=== PATIENT | female | born 2000 | race Caucasian/White ===

== ENCOUNTER 2022-08-11 14:25 | Inpatient (IN) | payer BC, SELFPAY ==
[2022-08-11 14:43] VITALS: BP 142/79; PULSE 83; RESP 18; TEMP 36.4; O2SAT 97; BMI 20.4
[2022-08-11 15:25] LABS: Appearance Urine Clear; Color Urine Yellow; Glucose Urine UA Negative (Negative); Leukocyte Esterase Urine Trace (Negative); Nitrite Urine Negative (Negative); Specific Gravity - Urine 1.025 (1.005-1.025); UMIC TRIGGER UACC YES; Urine Blood Negative (Negative); Urine Ketones 40 mg/dL (Negative); Urine Protein Negative (Neg-Trace)
[2022-08-11 15:26] LABS: UPreg QC Valid YES; Urine Pregnancy NEGATIVE (NEGATIVE)
[2022-08-11 15:29] LABS: Bacteria Urine 1+ (None Seen); Hyaline Casts Urine 0-2 /LPF (0-2); UACC Culture Trigger YES
[2022-08-11 15:35] LABS: Amphetamine Screen Urine Not Detected (Not Detect); Barbiturates, Urine Not Detected (Not Detect); Benzodiazepines Screen Urine Not Detected (Not Detect); Cannabinoid Screen Urine Not Detected (Not Detect); Cocaine Screen Urine Not Detected (Not Detect); Fentanyl, urine Not Detected (Not Detect); Opiate Screen Urine Not Detected (Not Detect); Phencyclidine Screen Urine Not Detected (Not Detect)
[2022-08-11 15:36] LABS: COVID-19 Test Negative (Negative); IDNOW Serial# 16C4AD1C
[2022-08-11 15:59] LABS: MANUAL DIFF FLAG NO
[2022-08-11 16:11] LABS: Basophils Percent Auto 0.8 % (0-2); Eosinophils Percent Auto 0.2 % (0-4); Hemoglobin 13.4 g/dl (12.0-16.0); Imm Gran Abs Auto 0.01 X10*3/uL (0.00-0.03); Imm Gran Pct Auto 0.2 % (0.0-0.4); Lymphocytes Absolute Auto 1.5 X10*3/uL (1.2-4.9); Lymphocytes Percent Auto 30.5 % (20-40); Mean Corpuscular HGB Conc 33.5 g/dl (31.0-35.0); Mean Corpuscular Hemoglobin 28.4 pg (27.0-33.0); Mean Corpuscular Volume 84.7 fL (80.0-98.0); Mean Platelet Volume 11.3 fL (9.4-12.3); Monocytes Absolute Auto 0.3 X10*3/uL (0.1-1.2); Monocytes Percent Auto 5.6 % (2-11); Neutrophils Percent Auto 62.7 % (45-73); Platelet Count 287 X10*3/uL (160-400); Red Blood Count 4.72 X10*6/uL (4.20-5.50); Red Cell Distribution Width 12.4 % (11.0-16.0); White Blood Count 4.9 X10*3/uL (4.8-10.8)
[2022-08-11 16:32] LABS: Alanine Aminotransferase 6 U/L (0-31); Albumin Level 4.6 g/dL (3.5-5.0); Alkaline Phosphatase 36 U/L (39-117); Anion Gap 14 (12-20); Aspartate Amino Transferase 11 U/L (5-31); Bilirubin Total 1.1 mg/dL (0.0-1.0); Blood Urea Nitrogen 7 mg/dL (9-16); Calcium 9.4 mg/dL (8.4-10.2); Carbon Dioxide 23 mmol/L (22-29); Chloride 104 mmol/L (96-108); Creatinine Clr Calc Pharmacy 115.7; Estimated Glomerular Filt Rate > 60; Glucose Random 95 mg/dL (60-115); Potassium 4.2 mmol/L (3.3-5.1); Sodium 137 mmol/L (135-145); Total Protein 8.2 g/dL (6.5-8.0)
[2022-08-11 16:43] LABS: Ethanol < 10 mg/dL
--- NOTE | 2022-08-11 17:15 | ED_ITS ---
HPI - Psych General Chief Complaint: Psychiatric Symptoms Stated Complaint: SI x 2 weeks, CRISIS eval per EMS Time Seen by Provider: 08/11/22 14:33 Source: patient Mode of arrival: EMS Limitations: no limitations History of Present Illness HPI Narrative: Patient is a 21-year-old female who presents to the emergency department via EMS for crisis evaluation. Patient is at [facility], she states she was ad vised by her counselor at school to come to the emergency department today. Patient has been having worsening depression recently. For the past 2-3 weeks she has been having suicidal ideations, she is vague about intent of pursuing a plan but states that she would either overdose on her medications or do something with her, that I read about online and does not provide further detail. She states over the past 2 months she initially stopped taking her trazodone and Prozac and then did begin taking it again, though it is unclear when she restarted it over the past 2-6 weeks. She does report increased stressors, though she is nonspecific about this and does not wish to provide further detail. She denies any physical complaints when asked. Denies any recreational drug or alcohol usage. Denies any past history of psychiatric hospitalization. Denies any homicidal ideations Related Data Home Medications Medication Instructions Recorded Confirmed fluoxetine 20 mg capsule 1 cap PO DAILY 08/11/22 08/11/22 trazodone 50 mg tablet 0.5 - 1 tab PO BEDTIME 08/11/22 08/11/22 Allergies Allergy/AdvReac Type Severity Reaction Status Date / Time No Known Allergies Allergy Verified 08/11/22 17:08 Review of Systems Review of Systems: Yes all other systems are reviewed and are negative [facility] Past Medical History Attestation statement: The following information was validated with the patient. Source: old records reviewed Social History Social History Alcohol intake: never Smoked in Last 30 Days: No Use of substances other than those prescribed or required for medical reasons: No Advance Directives: No Advance Directives Information Provided: No Physical Exam Vital Signs: Vital Signs: Last Vital Signs Temp 97.6 F 08/11/22 14:43 Pulse 83 08/11/22 14:43 Resp 18 08/11/22 14:43 BP 142/79 H 08/11/22 14:43 Pulse Ox 97 08/11/22 14:43 O2 Del Method 08/11/22 14:43 BMI result Body Mass Index 20.4 Appearance: Alert.?Oriented to person, place and time. No acute distress.?Normal affect. Eyes: Pupils equal, round and reactive to light.? ENT: Pharynx normal.?? Neck: Normal inspection.? Neck supple.?? CVS: Heart sounds normal. Normal heart rate and rhythm.? Pulses normal.?? Respiratory: No respiratory distress.? Lung sounds clear to auscultation bilate rally?? Abdomen: Soft and non-tender. Normoactive bowel sounds. ? Skin: Skin warm and dry.? Normal skin color.?? Extremities: No lower extremity edema.? Neuro: Moves all extremities spontaneously. Sensation intact bilaterally. CN II- XII intact. No focal neuro deficits. Ambulates with normal steady gait. Course Reevaluation(s) Reevaluation #1: CBC and CMP overall unremarkable. Urinalysis with trace pyuria, squamous epithelial cells are also present, she is without any genitourinary symptoms, do not suspect urinary tract infection at this time but rather urogenital contamination. Urine test is negative. Drug abuse screen is negative, alcohol level is blood flow any detectable limit. COVID-19 testing is negative. At this time patient placed in physician observation, the reason for observation being that she requires further time to be evaluated by care team and determination as to whether inpatient psychiatric services are required at this time. She is in no apparent respiratory distress. Time: 17:30 Medical Decision Making Medical Decision Making [facility] Narrative: Patient is a 21-year-old female with reported past medical history of depression presenting to emergency department for evaluation of suicidal ideations with a plan but vague as to whether she has any intention. She is calm and cooperative. Appears to be distracted, and at times responding to external stimuli, when speaking to her she is often noted to be staring off to the side and up towards the ceiling as that she may be experiencing hallucinations, but when asked she denies. She denies any physical complaints. Her physical examination is benign. Will obtain labs for medical clearance, and referred to care team for further evaluation. Differential Diagnosis Differential Diagnoses: The differential diagnosis associated with the presentation includes (Substance use disorder, anxiety, depression, mood disorder, schizophrenia, suicidal ideations) Admission/Observation Consideration of admission/observation: Escalation of care including admission/observation considered (As noted in course) Lab Data [facility] Lab Attestation statement: I reviewed the patient's lab results. 08/11/22 15:50 08/11/22 15:51 Labs: Lab Results 08/11/22 08/11/22 08/11/22 Range/Units 15:13 15:13 15:13 WBC (4.8-10.8) X10*3/uL RBC (4.20-5.50) X10*6/uL Hgb (12.0-16.0) g/dl Hct (37.0-47.0) % MCV (80.0-98.0) fL MCH (27.0-33.0) pg MCHC (31.0-35.0) g/dl RDW (11.0-16.0) % Plt Count (160-400) X10*3/uL MPV (9.4-12.3) fL Immature Gran % (Auto) (0.0-0.4) % Neut % (Auto) (45-73) % Lymph % (Auto) (20-40) % [place] % (Auto) (2-11) % Eos % (Auto) (0-4) % Baso % (Auto) (0-2) % Lymph # (Auto) (1.2-4.9) X10*3/uL [place]iken # (Auto) (0.1-1.2) X10*3/uL Eos # (Auto) (0.0-0.4) X10*3/uL Baso # (Auto) (0.0-0.2) X10*3/uL Abs Immat Gran (auto) (0.00-0.03) X10*3/uL Absolute Neuts (auto) (2.0-8.3) x10*3/uL Absolute Nucleated RBC (0.0-0.012) X10*3/uL Nucleated RBC % (auto) (0.0-0.2) /100WBC Sodium (135-145) mmol/L Potassium (3.3-5.1) mmol/L Chloride (96-108) mmol/L Carbon Dioxide (22-29) mmol/L Anion Gap (12-20) BUN (9-16) mg/dL Creatinine (0.5-1.4) mg/dL Estim Creat Clear Calc Estimated GFR Random Glucose (60-115) mg/dL Calcium (8.4-10.2) mg/dL Total Bilirubin (0.0-1.0) mg/dL AST (5-31) U/L ALT (0-31) U/L Alkaline Phosphatase (39-117) U/L Total Protein (6.5-8.0) g/dL Albumin (3.5-5.0) g/dL Urine Color Yellow Urine Appearance Clear Urine pH 6.0 (5.0-9.0) Ur Specific [place] 1.025 (1.005-1.025) Urine Protein Negative (Neg-Trace) mg/dL Urine Glucose (UA) Negative (Negative) mg/dL Urine Ketones 40 (Negative) mg/dL Urine Blood Negative (Negative) Urine Nitrite Negative (Negative) Ur Leukocyte Esterase Trace H (Negative) Urine RBC 3-5 H (0-2) /HPF Urine WBC 6-10 H (0-5) /HPF Ur Squamous Epith Cells 6-10 (0-2) /HPF Urine Bacteria 1+ (None Seen) Hyaline Casts 0-2 (0-2) /LPF Urine Test NEGATIVE (NEGATIVE) Urine Opiates Screen (Not Detect) Urine Fentanyl Screen (Not Detect) Ur Barbiturates Screen (Not Detect) Ur Phencyclidine Scrn (Not Detect) Ur Amphetamines Screen (Not Detect) U Benzodiazepines Scrn (Not Detect) Urine Cocaine Screen (Not Detect) U Marijuana (THC) Screen (Not Detect) Ethyl Alcohol mg/dL COVID-19 (LUCIA) Negative (Negative) COVID-19 Clin Com See Note 08/11/22 08/11/22 08/11/22 Range/Units 15:13 15:50 15:50 WBC 4.9 (4.8-10.8) X10*3/uL RBC 4.72 (4.20-5.50) X10*6/uL Hgb 13.4 (12.0-16.0) g/dl Hct 40.0 (37.0-47.0) % MCV 84.7 (80.0-98.0) fL MCH 28.4 (27.0-33.0) pg MCHC 33.5 (31.0-35.0) g/dl RDW 12.4 (11.0-16.0) % Plt Count 287 (160-400) X10*3/uL MPV 11.3 (9.4-12.3) fL Immature Gran % (Auto) 0.2 (0.0-0.4) % Neut % (Auto) 62.7 (45-73) % Lymph % (Auto) 30.5 (20-40) % Aiken % (Auto) 5.6 (2-11) % Eos % (Auto) 0.2 (0-4) % Baso % (Auto) 0.8 (0-2) % Lymph # (Auto) 1.5 (1.2-4.9) X10*3/uL Aiken # (Auto) 0.3 (0.1-1.2) X10*3/uL Eos # (Auto) 0.0 (0.0-0.4) X10*3/uL Baso # (Auto) 0.0 (0.0-0.2) X10*3/uL Abs Immat Gran (auto) 0.01 (0.00-0.03) X10*3/uL Absolute Neuts (auto) 3.0 (2.0-8.3) x10*3/uL Absolute Nucleated RBC 0.000 (0.0-0.012) X10*3/uL Nucleated RBC % (auto) 0.0 (0.0-0.2) /100WBC Sodium (135-145) mmol/L Potassium (3.3-5.1) mmol/L Chloride (96-108) mmol/L Carbon Dioxide (22-29) mmol/L Anion Gap (12-20) BUN (9-16) mg/dL Creatinine (0.5-1.4) mg/dL Estim Creat Clear Calc Estimated GFR Random Glucose (60-115) mg/dL Calcium (8.4-10.2) mg/dL Total Bilirubin (0.0-1.0) mg/dL AST (5-31) U/L ALT (0-31) U/L Alkaline Phosphatase (39-117) U/L Total Protein (6.5-8.0) g/dL Albumin (3.5-5.0) g/dL Urine Color Urine Appearance Urine pH (5.0-9.0) Ur Specific [place] (1.005-1.025) Urine Protein (Neg-Trace) mg/dL Urine Glucose (UA) (Negative) mg/dL Urine Ketones (Negative) mg/dL Urine Blood (Negative) Urine Nitrite (Negative) Ur Leukocyte Esterase (Negative) Urine RBC (0-2) /HPF Urine WBC (0-5) /HPF Ur Squamous Epith Cells (0-2) /HPF Urine Bacteria (None Seen) Hyaline Casts (0-2) /LPF Urine Test (NEGATIVE) Urine Opiates Screen Not Detected (Not Detect) Urine Fentanyl Screen Not Detected (Not Detect) Ur Barbiturates Screen Not Detected (Not Detect) Ur Phencyclidine Scrn Not Detected (Not Detect) Ur Amphetamines Screen Not Detected (Not Detect) U Benzodiazepines Scrn Not Detected (Not Detect) Urine Cocaine Screen Not Detected (Not Detect) U Marijuana (THC) Screen Not Detected (Not Detect) Ethyl Alcohol < 10 mg/dL COVID-19 (LUCIA) (Negative) COVID-19 Clin Com 08/11/22 Range/Units 15:51 WBC (4.8-10.8) X10*3/uL RBC (4.20-5.50) X10*6/uL Hgb (12.0-16.0) g/dl Hct (37.0-47.0) % MCV (80.0-98.0) fL MCH (27.0-33.0) pg MCHC (31.0-35.0) g/dl RDW (11.0-16.0) % Plt Count (160-400) X10*3/uL MPV (9.4-12.3) fL Immature Gran % (Auto) (0.0-0.4) % Neut % (Auto) (45-73) % Lymph % (Auto) (20-40) % Aiken % (Auto) (2-11) % Eos % (Auto) (0-4) % Baso % (Auto) (0-2) % Lymph # (Auto) (1.2-4.9) X10*3/uL Aiken # (Auto) (0.1-1.2) X10*3/uL Eos # (Auto) (0.0-0.4) X10*3/uL Baso # (Auto) (0.0-0.2) X10*3/uL Abs Immat Gran (auto) (0.00-0.03) X10*3/uL Absolute Neuts (auto) (2.0-8.3) x10*3/uL Absolute Nucleated RBC (0.0-0.012) X10*3/uL Nucleated RBC % (auto) (0.0-0.2) /100WBC Sodium 137 (135-145) mmol/L Potassium 4.2 (3.3-5.1) mmol/L Chloride 104 (96-108) mmol/L Carbon Dioxide 23 (22-29) mmol/L Anion Gap 14 (12-20) BUN 7 L (9-16) mg/dL Creatinine 0.65 (0.5-1.4) mg/dL Estim Creat Clear Calc 115.7 Estimated GFR > 60 Random Glucose 95 (60-115) mg/dL Calcium 9.4 (8.4-10.2) mg/dL Total Bilirubin 1.1 H (0.0-1.0) mg/dL AST 11 (5-31) U/L ALT 6 (0-31) U/L Alkaline Phosphatase 36 L (39-117) U/L Total Protein 8.2 H (6.5-8.0) g/dL Albumin 4.6 (3.5-5.0) g/dL Urine Color Urine Appearance Urine pH (5.0-9.0) Ur Specific [place] (1.005-1.025) Urine Protein (Neg-Trace) mg/dL Urine Glucose (UA) (Negative) mg/dL Urine Ketones (Negative) mg/dL Urine Blood (Negative) Urine Nitrite (Negative) Ur Leukocyte Esterase (Negative) Urine RBC (0-2) /HPF Urine WBC (0-5) /HPF Ur Squamous Epith Cells (0-2) /HPF Urine Bacteria (None Seen) Hyaline Casts (0-2) /LPF Urine Test (NEGATIVE) Urine Opiates Screen (Not Detect) Urine Fentanyl Screen (Not Detect) Ur Barbiturates Screen (Not Detect) Ur Phencyclidine Scrn (Not Detect) Ur Amphetamines Screen (Not Detect) U Benzodiazepines Scrn (Not Detect) Urine Cocaine Screen (Not Detect) U Marijuana (THC) Screen (Not Detect) Ethyl Alcohol mg/dL COVID-19 (LUCIA) (Negative) COVID-19 Clin Com Discharge Plan Discharge Clinical Impression: Suicidal ideation, Depression Patient Disposition: Still a Patient Prescriptions: No Action fluoxetine 20 mg capsule 1 cap PO DAILY trazodone 50 mg tablet 0.5 - 1 tab PO BEDTIME Interventions: [place]-Suicide Risk Severity Scale Last Done: 08/11/22 15:35
--- NOTE | 2022-08-11 18:35 | PHA.MEDREC ---
Pharmacy Consult ? Medication Reconciliation RN has completed the medication reconciliation, pharmacy reviewed.
[2022-08-11] MEDS: Acetaminophen 325 MG TABLET 650 MG PO (20:15)
[2022-08-11 23:55] VITALS: BP 100/63; PULSE 64; RESP 16; TEMP 36.6; O2SAT 98
[2022-08-12] MEDS: traZODone HCL 50 MG TABLET PO (00:17)
--- NOTE | 2022-08-12 00:45 | PC.ADMIT ---
Ruiz, prefers Xin, was admitted to [facility] at 24:44 from the Pod on a CV for treatment of SI & MDD. Admission process was completed using the crisis assessment d/t patient requesting to go to bed. 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 Precipitant of admission include increasing depression and suicidal thoughts with a vague plan. Per crisis pt has had increasing SI for 2-3 weeks with plan to ?starve herself?, and/or ?renting a car and dying inside her car?.? Crisis assessment also reported that the patient has had intrusive images of ?dying and killing her pets?. Reported that these images were uncontrollable. Recent breakup in May as well. Xin is Alert and Oriented x4. Mood is depressed with congruent flat affect. Patient denies HI/ AH/ VH. Xin states that she has been struggling with school and her grades are reflecting. 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 Thought Process linear and organized. No overt psychosis noted. Patient denied active SI upon admission. Reported that she would seek staff if she started to have these feelings or thoughts. Crisis assessment reported a poor appetite. Pt reported that she is only eating one meal a day, and that she is only consuming about half of the meal. Recent poor sleep, ?it takes hours to fall asleep?. PALOMO and negative. Pt denied being a smoker. Denies all physical complaints at this time. No acute distress noted or reported. 15 Minute safety checks initiated.?
[2022-08-12 08:00] VITALS: BP 107/73; PULSE 70; RESP 18; TEMP 36.6; O2SAT 99
[2022-08-12] MEDS: FLUoxetine HCl 20 MG CAPSULE PO (08:40)
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
[2022-08-12] MEDS: traZODone HCL 25 MG HALFTAB 75 MG PO (20:41)
[2022-08-12 20:45] VITALS: BP 90/53; PULSE 86; RESP 18; TEMP 36.4; O2SAT 98
[2022-08-13 08:00] VITALS: BP 100/61; PULSE 67; RESP 18; TEMP 36.7; O2SAT 98
[2022-08-13] MEDS: FLUoxetine HCl 20 MG CAPSULE PO (08:56)
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
[2022-08-13] MEDS: buPROPion HCl XL 150 MG TAB.ER.24H PO (13:14)
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
[2022-08-13 21:20] VITALS: BP 96/55; PULSE 87; RESP 18; TEMP 36.7; O2SAT 97
[2022-08-13] MEDS: traZODone HCL 25 MG HALFTAB 75 MG PO (21:28)
[2022-08-14 09:00] VITALS: BP 96/53; PULSE 70; RESP 14; TEMP 36.6; O2SAT 98
[2022-08-14] MEDS: FLUoxetine HCl 20 MG CAPSULE PO (09:42)
[2022-08-14] MEDS: buPROPion HCl XL 150 MG TAB.ER.24H PO (09:42)
--- NOTE | 2022-08-14 12:54 | HO.PSYCHPN ---
Subjective Subjective Date of Service: 08/14/22 Reason For Visit: Depression/SI Subjective Notes: Conditional Voluntary Healthcare Proxy: No Guardianship: No Interim History: Pt quite depressed monotone has been quite depressed food restricting denies active si but quite withdrawn Medication Compliance: Yes Mental Status Exam Mental Status Exam Narrative: pt monotone withdrawn dec appetite monotone hopeless helpless passive si limited engagement pov content does better with time and encouragement no hallucinate Upset over feeling unsupported by school Diagnostics Vital Signs (24Hr): Vital Signs - 24 hr 08/13/22 21:20 08/14/22 09:00 Temperature 98.1 F 97.9 F Pulse Rate 87 70 Respiratory Rate 18 14 Blood Pressure 96/55 L 96/53 L Pulse Oximetry 97 98 Oxygen Delivery Method Room Air Room Air BMI result Body Mass Index 20.0 Labs 08/11/22 15:50 08/11/22 15:51 Medications Medications Current Medications Acetaminophen (Acetaminophen 325 Mg Tablet) 650 mg PO Q6H PRN PRN Reason: Headache/Pain Mild Scale (1-3) Al Hydroxide/Mg Hydroxide (Magnesium Hydrox/Alum Hydrox 30 Ml Oral.Susp) 30 ml PO Q6H PRN PRN Reason: Heartburn/Nausea Bupropion HCl (Bupropion Hcl Xl 150 Mg Tab.Er.24h) 150 mg PO DAILY [facility] Last Admin: 08/14/22 09:42 Dose: 150 mg Fluoxetine HCl (Fluoxetine Hcl 20 Mg Capsule) 20 mg PO DAILY [facility] Last Admin: 08/14/22 09:42 Dose: 20 mg Hydroxyzine HCl (Hydroxyzine Hcl 25 Mg Tablet) 25 mg PO Q6H PRN PRN Reason: Anxiety Magnesium Hydroxide (Milk Of Magnesia 30 Ml Oral.Susp) 30 ml PO DAILY PRN PRN Reason: Constipation Trazodone HCl (Trazodone Hcl 25 Mg Halftab) 75 mg PO BEDTIME [facility] Last Admin: 08/13/22 21:28 Dose: 75 mg Trazodone HCl (Trazodone Hcl 25 Mg Halftab) 25 mg PO BEDTIME PRN PRN Reason: Insomnia Allergies Allergies Allergy/AdvReac Type Severity Reaction Status Date / Time No Known Allergies Allergy Verified 08/11/22 17:08 Assessment & Plan Assessment & Plan (1) Major depressive disorder, recurrent severe without psychotic features: Status: Acute Code(s): F33.2 - Major depressive disorder, recurrent severe without psychotic features Plan 08/12: continue prozac 20 mg daily. increase trazodone to 75 mg QHS. T/C incr in prozac dosing, starting wellbutrin, or other. 08/13: collateral obtained from [facility] counseling re meds Hx. start wellbutrin 150 today, otherwise continue previous regimen. 08/14/2022 Continue plan of care monitor food intake encourage safety plan and future orientation Reason for contiued inpatient stay Substantial Risk for: harm to self Time Spent With Patient Time: Total time managing care of this patient today ____ minutes.
[2022-08-14] MEDS: traZODone HCL 25 MG HALFTAB 75 MG PO (23:01)
[2022-08-15 08:27] VITALS: BP 96/59; PULSE 86; RESP 18; TEMP 36.6; O2SAT 96
[2022-08-15] MEDS: buPROPion HCl XL 150 MG TAB.ER.24H PO (09:57)
[2022-08-15] MEDS: FLUoxetine HCl 20 MG CAPSULE PO (09:57)
--- NOTE | 2022-08-15 16:41 | PC.NURSE ---
Today Horacio ate no breakfast. I made her tea and gave her a bottled water. She took sips of her tea and drank 4 oz water, declined the crackers I offered. After speaking with Dr Haile she ate 75% of a cheeseburger and a few bites of soup at lunch.
[2022-08-15 20:15] VITALS: BP 95/55; PULSE 73; RESP 16; TEMP 36.6; O2SAT 96
[2022-08-15] MEDS: Cyproheptadine HCl 4 MG TABLET 2 MG PO (20:28)
[2022-08-15] MEDS: traZODone HCL 50 MG TABLET PO (20:28)
--- NOTE | 2022-08-15 23:57 | HO.PSYCHPN ---
Subjective Subjective Date of Service: 08/15/22 Reason For Visit: Depression/SI Subjective Notes: Conditional Voluntary Healthcare Proxy: No Guardianship: No Interim History: Patient had not been eating on a regular basis try to clarify issues related to anorexia versus depression. Also unclear parents view of patient's current situation difficulty at school patient thinking about taking a medical leave. After discussion regarding her food intake patient did eat the breakfast and lunch Medication Compliance: Yes Mental Status Exam Mental Status Exam Narrative: pt monotone withdrawn dec appetite monotone hopeless helpless passive si limited engagement pov content does better with time and encouragement no hallucinations Upset over feeling unsupported by school patient often vague regarding feeling states and behavior was able to take in information regarding safety and eating Diagnostics Vital Signs (24Hr): Vital Signs - 24 hr 08/15/22 08:27 08/15/22 20:15 Temperature 97.9 F 97.8 F Pulse Rate 86 73 Respiratory Rate 18 16 Blood Pressure 96/59 L 95/55 L Pulse Oximetry 96 96 Oxygen Delivery Method Room Air BMI result Body Mass Index 20.0 Labs 08/11/22 15:50 08/11/22 15:51 Medications Medications Current Medications Acetaminophen (Acetaminophen 325 Mg Tablet) 650 mg PO Q6H PRN PRN Reason: Headache/Pain Mild Scale (1-3) Al Hydroxide/Mg Hydroxide (Magnesium Hydrox/Alum Hydrox 30 Ml Oral.Susp) 30 ml PO Q6H PRN PRN Reason: Heartburn/Nausea Bupropion HCl (Bupropion Hcl Xl 150 Mg Tab.Er.24h) 150 mg PO DAILY [facility] Last Admin: 08/15/22 09:57 Dose: 150 mg Cyproheptadine HCl (Cyproheptadine Hcl 4 Mg Tablet) 2 mg PO BEDTIME [facility] Last Admin: 08/15/22 20:28 Dose: 2 mg Fluoxetine HCl (Fluoxetine Hcl 20 Mg Capsule) 20 mg PO DAILY [facility] Last Admin: 08/15/22 09:57 Dose: 20 mg Hydroxyzine HCl (Hydroxyzine Hcl 25 Mg Tablet) 25 mg PO Q6H PRN PRN Reason: Anxiety Magnesium Hydroxide (Milk Of Magnesia 30 Ml Oral.Susp) 30 ml PO DAILY PRN PRN Reason: Constipation Trazodone HCl (Trazodone Hcl 50 Mg Tablet) 50 mg PO BEDTIME [facility] Last Admin: 08/15/22 20:28 Dose: 50 mg Trazodone HCl (Trazodone Hcl 25 Mg Halftab) 25 mg PO BEDTIME PRN PRN Reason: Insomnia Allergies Allergies Allergy/AdvReac Type Severity Reaction Status Date / Time No Known Allergies Allergy Verified 08/11/22 17:08 Assessment & Plan Assessment & Plan (1) Major depressive disorder, recurrent severe without psychotic features: Status: Acute Code(s): F33.2 - Major depressive disorder, recurrent severe without psychotic features Plan 08/12: continue prozac 20 mg daily. increase trazodone to 75 mg QHS. T/C incr in prozac dosing, starting wellbutrin, or other. 08/13: collateral obtained from [facility] counseling re meds Hx. start wellbutrin 150 today, otherwise continue previous regimen. 08/14/2022 Continue plan of care monitor food intake encourage safety plan and future orientation 08/15/22 Continue plan of care encourage parental support planning with [facility] Continue Wellbutrin consider PHP Reason for contiued inpatient stay Substantial Risk for: harm to self Time Spent With Patient Time: Total time managing care of this patient today ____ minutes.
[2022-08-16 08:00] VITALS: BP 88/53; PULSE 80; TEMP 36.4; O2SAT 98
[2022-08-16] MEDS: FLUoxetine HCl 20 MG CAPSULE PO (08:43)
[2022-08-16] MEDS: buPROPion HCl XL 150 MG TAB.ER.24H PO ×2 (08:43→13:41)
[2022-08-16 09:10] LABS: TSH reflex Free T4 1.77 uIU/mL (0.32-4.0)
--- NOTE | 2022-08-16 13:43 | P.PNPSI_ITS ---
Subjective Subjective Date of Service: 08/16/22 Reason For Visit: Depression/SI Interim History: stable presentation, rather flat and monotone. states she is all right and her mood is not bad. denies SI. discuss her plans, which are presently to take a medical leave from school and return to her family in [place]. agreeable to increase wellbutrin to 300 and to increase periactin to 4 mg QHS. per staff, guarded. using phone to communicate with family in [place]. anxiety improved. sleeping well.. eating 50%. safe. up x1 overnight. Mental Status Exam Mental Status Exam Narrative: calm, cooperative. gown. adequate hygiene. cooperative. no PMA/PMR. speech soft, decr amount, decr rate, flattened prosody. thoughts linear and logical. affect constricted. mood not bad. denies SI. no SIBI/HI/AVH expressed. Diagnostics Vital Signs (24Hr): Vital Signs - 24 hr 08/15/22 20:15 08/16/22 08:00 Temperature 97.8 F 97.6 F Pulse Rate 73 80 Respiratory Rate 16 Blood Pressure 95/55 L 88/53 L Pulse Oximetry 96 98 Oxygen Delivery Method Room Air BMI result Body Mass Index 20.0 Labs 08/11/22 15:50 08/11/22 15:51 Labs: Laboratory Results - last 48 hr 08/16/22 08:25 TSH 1.77 Medications Medications Current Medications Acetaminophen (Acetaminophen 325 Mg Tablet) 650 mg PO Q6H PRN PRN Reason: Headache/Pain Mild Scale (1-3) Al Hydroxide/Mg Hydroxide (Magnesium Hydrox/Alum Hydrox 30 Ml Oral.Susp) 30 ml PO Q6H PRN PRN Reason: Heartburn/Nausea Bupropion HCl (Bupropion Hcl Xl 150 Mg Tab.Er.24h) 150 mg PO ONCE ONE Stop: 08/16/22 11:55 Last Admin: 08/16/22 13:41 Dose: 150 mg Bupropion HCl (Bupropion Hcl Xl 300 Mg Tab.Er.24h) 300 mg PO DAILY [facility] Cyproheptadine HCl (Cyproheptadine Hcl 4 Mg Tablet) 4 mg PO BEDTIME [facility] Fluoxetine HCl (Fluoxetine Hcl 20 Mg Capsule) 20 mg PO DAILY [facility] Last Admin: 08/16/22 08:43 Dose: 20 mg Hydroxyzine HCl (Hydroxyzine Hcl 25 Mg Tablet) 25 mg PO Q6H PRN PRN Reason: Anxiety Magnesium Hydroxide (Milk Of Magnesia 30 Ml Oral.Susp) 30 ml PO DAILY PRN PRN Reason: Constipation Trazodone HCl (Trazodone Hcl 50 Mg Tablet) 50 mg PO BEDTIME [facility] Last Admin: 08/15/22 20:28 Dose: 50 mg Trazodone HCl (Trazodone Hcl 25 Mg Halftab) 25 mg PO BEDTIME PRN PRN Reason: Insomnia Allergies Allergies Allergy/AdvReac Type Severity Reaction Status Date / Time No Known Allergies Allergy Verified 08/11/22 17:08 Assessment & Plan Assessment & Plan (1) Major depressive disorder, recurrent severe without psychotic features: Status: Acute Code(s): F33.2 - Major depressive disorder, recurrent severe without psychotic features Plan 3: continue prozac 20 mg daily. increase trazodone to 75 mg QHS. T/C incr in prozac dosing, starting wellbutrin, or other. 08/13: collateral obtained from [facility] counseling re meds Hx. start wellbutrin 150 today, otherwise continue previous regimen. 08/14/2022 Continue plan of care monitor food intake encourage safety plan and future orientation 08/15/22 Continue plan of care encourage parental support planning with [facility] Continue Wellbutrin consider PHP 08/16: increase wellbutrin to 300. increase periactin to 4. planning for DC later this week. pt plans to take medical leave from school and return to stay with family in [place]. Patient educated on: medication risk/benefits Reason for contiued inpatient stay Substantial Risk for: inability to function and rapid decompensation Time Spent With Patient Time: Total time managing care of this patient today __25__ minutes.
[2022-08-16 20:00] VITALS: BP 102/59; PULSE 103; RESP 16; TEMP 36.9; O2SAT 97
[2022-08-16] MEDS: Cyproheptadine HCl 4 MG TABLET PO (23:15)
[2022-08-16] MEDS: traZODone HCL 50 MG TABLET PO (23:15)
[2022-08-17 06:00] VITALS: BP 99/60; PULSE 78; TEMP 36.5; O2SAT 98
[2022-08-17] MEDS: buPROPion HCl XL 300 MG TAB.ER.24H PO (08:52)
[2022-08-17] MEDS: FLUoxetine HCl 20 MG CAPSULE PO (08:52)
--- NOTE | 2022-08-17 14:18 | HO.PSYCHPN ---
Subjective Subjective Date of Service: 08/17/22 Reason For Visit: Depression/SI Interim History: calm, cooperative. not seen in the milieu today. seems slower today. reports SI has returned. she noticed that 3 days ago she started to not want to shower. then yesterday she started to not want to talk to her family in [place]. then today she began to have SI. 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 she became quite anxious afterward thinking of all the things she needs to get done in order to wrap up here and get back to [place]. discuss her asking her mother for help with some of those things. she cannot directly link the increase in anxiety with return of SI, and as reviewed above, it appears changes began several days ago. states she slept well last night, however. per staff, guarded, not answering questions. med and meals complaint, at least eating some of most meals. attended art group. pleasant, appropriate. slept from 2300 on. Mental Status Exam Mental Status Exam Narrative: calm, cooperative. gown. adequate hygiene. cooperative. no PMA/PMR. speech soft, decr amount, decr rate, flattened prosody. thoughts linear and logical. affect constricted. mood anxious. endorses SI. no SIBI/HI/AVH expressed. Diagnostics Vital Signs (24Hr): Vital Signs - 24 hr 08/16/22 20:00 08/17/22 06:00 Temperature 98.5 F 97.7 F Pulse Rate 103 H 78 Respiratory Rate 16 Blood Pressure 102/59 L 99/60 Pulse Oximetry 97 98 Oxygen Delivery Method Room Air Room Air BMI result Body Mass Index 20.0 Labs 08/11/22 15:50 08/11/22 15:51 Labs: Laboratory Results - last 48 hr 08/16/22 08:25 TSH 1.77 Medications Medications Current Medications Acetaminophen (Acetaminophen 325 Mg Tablet) 650 mg PO Q6H PRN PRN Reason: Headache/Pain Mild Scale (1-3) Al Hydroxide/Mg Hydroxide (Magnesium Hydrox/Alum Hydrox 30 Ml Oral.Susp) 30 ml PO Q6H PRN PRN Reason: Heartburn/Nausea Bupropion HCl (Bupropion Hcl Xl 300 Mg Tab.Er.24h) 300 mg PO DAILY [facility] Last Admin: 08/17/22 08:52 Dose: 300 mg Cyproheptadine HCl (Cyproheptadine Hcl 4 Mg Tablet) 4 mg PO BEDTIME [facility] Last Admin: 08/16/22 23:15 Dose: 4 mg Fluoxetine HCl (Fluoxetine Hcl 20 Mg Capsule) 20 mg PO DAILY [facility] Last Admin: 08/17/22 08:52 Dose: 20 mg Hydroxyzine HCl (Hydroxyzine Hcl 25 Mg Tablet) 25 mg PO Q6H PRN PRN Reason: Anxiety Magnesium Hydroxide (Milk Of Magnesia 30 Ml Oral.Susp) 30 ml PO DAILY PRN PRN Reason: Constipation Trazodone HCl (Trazodone Hcl 50 Mg Tablet) 50 mg PO BEDTIME [facility] Last Admin: 08/16/22 23:15 Dose: 50 mg Trazodone HCl (Trazodone Hcl 25 Mg Halftab) 25 mg PO BEDTIME PRN PRN Reason: Insomnia Allergies Allergies Allergy/AdvReac Type Severity Reaction Status Date / Time No Known Allergies Allergy Verified 08/11/22 17:08 Assessment & Plan Assessment & Plan (1) Major depressive disorder, recurrent severe without psychotic features: Status: Acute Code(s): F33.2 - Major depressive disorder, recurrent severe without psychotic features Plan 3/2: continue prozac 20 mg daily. increase trazodone to 75 mg QHS. T/C incr in prozac dosing, starting wellbutrin, or other. 08/13: collateral obtained from [facility] counseling re meds Hx. start wellbutrin 150 today, otherwise continue previous regimen. 08/14/2022 Continue plan of care monitor food intake encourage safety plan and future orientation 08/15/22 Continue plan of care encourage parental support planning with [facility] Continue Wellbutrin consider PHP 08/16: increase wellbutrin to 300. increase periactin to 4. planning for DC later this week. pt plans to take medical leave from school and return to stay with family in [place]. 08/17: second day of wellbutrin 300. reporting SI today and had panic attack in the afternoon. states she slept well, however. T/C decrease of wellbutrin back to 150 and increase in prozac, currently at 20 mg daily. Patient educated on: medication risk/benefits Reason for contiued inpatient stay Substantial Risk for: harm to self, inability to function and rapid decompensation Time Spent With Patient Time: Total time managing care of this patient today __35__ minutes.
[2022-08-17] MEDS: hydrOXYzine HCL 25 MG TABLET PO ×2 (14:20→23:18)
[2022-08-17 20:00] VITALS: BP 117/69; PULSE 109; RESP 16; TEMP 36.8; O2SAT 97
[2022-08-17] MEDS: traZODone HCL 50 MG TABLET PO (23:18)
[2022-08-17] MEDS: Cyproheptadine HCl 4 MG TABLET PO (23:18)
[2022-08-18 06:00] VITALS: BP 96/60; PULSE 76; RESP 16; TEMP 36.6; O2SAT 97
[2022-08-18] MEDS: FLUoxetine HCl 20 MG CAPSULE PO (09:41)
[2022-08-18] MEDS: buPROPion HCl XL 300 MG TAB.ER.24H PO (09:41)
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
[2022-08-18] MEDS: LORazepam 1 MG TABLET PO (16:51)
[2022-08-18 20:50] VITALS: BP 114/86; PULSE 98; TEMP 37.1; O2SAT 98
[2022-08-18] MEDS: hydrOXYzine HCL 25 MG TABLET PO (21:06)
[2022-08-18] MEDS: traZODone HCL 50 MG TABLET PO (21:56)
[2022-08-18] MEDS: Cyproheptadine HCl 4 MG TABLET PO (21:56)
[2022-08-19 08:35] VITALS: BP 93/60; PULSE 72; RESP 14; TEMP 36.7; O2SAT 98
[2022-08-19] MEDS: buPROPion HCl XL 150 MG TAB.ER.24H PO (08:46)
[2022-08-19] MEDS: FLUoxetine HCl 20 MG CAPSULE 40 MG PO (08:46)
--- NOTE | 2022-08-19 13:12 | HO.PSYCHPN ---
Subjective Subjective Date of Service: 08/19/22 Reason For Visit: Depression/SI Interim History: hu, cooperative. reports anxiety better than yesterday, mood a bit improved. spoke with mother. had panic attacks and nightmares last night. after taking ativan felt like she was swinging, agrees to try dose of 0.5 mg next time. agreeable to discharge tuesday. asking questions about Dx and relational style. discuss plans to return to [place]. per staff, sleeping better. anx/dep 7. spent a lot of time on the phone yesterday. no groups. passive SI at times. terse. crying 2/2 flashbacks. slept well. got ativan at about 5 pm. Mental Status Exam Mental Status Exam Narrative: calm, cooperative. gown. adequate hygiene. cooperative. no PMA/PMR. speech soft, decr amount, decr rate, flattened prosody. thoughts linear and logical. affect constricted. mood improved, less anxious. no SI/SIBI/HI/AVH expressed. Diagnostics Vital Signs (24Hr): Vital Signs - 24 hr 08/18/22 20:50 08/19/22 08:35 Temperature 98.7 F 98.0 F Pulse Rate 98 72 Respiratory Rate 14 Blood Pressure 114/86 93/60 Pulse Oximetry 98 98 Oxygen Delivery Method Room Air Room Air BMI result Body Mass Index 20.0 Labs 08/11/22 15:50 08/11/22 15:51 Medications Medications Current Medications Acetaminophen (Acetaminophen 325 Mg Tablet) 650 mg PO Q6H PRN PRN Reason: Headache/Pain Mild Scale (1-3) Al Hydroxide/Mg Hydroxide (Magnesium Hydrox/Alum Hydrox 30 Ml Oral.Susp) 30 ml PO Q6H PRN PRN Reason: Heartburn/Nausea Bupropion HCl (Bupropion Hcl Xl 150 Mg Tab.Er.24h) 150 mg PO DAILY COUNTS INCLUDE 234 BEDS AT [facility] Last Admin: 08/19/22 08:46 Dose: 150 mg Cyproheptadine HCl (Cyproheptadine Hcl 4 Mg Tablet) 4 mg PO BEDTIME [facility] Last Admin: 08/18/22 21:56 Dose: 4 mg Fluoxetine HCl (Fluoxetine Hcl 20 Mg Capsule) 40 mg PO DAILY COUNTS INCLUDE 234 BEDS AT [facility] Last Admin: 08/19/22 08:46 Dose: 40 mg Hydroxyzine HCl (Hydroxyzine Hcl 25 Mg Tablet) 25 mg PO Q6H PRN PRN Reason: Anxiety Last Admin: 08/18/22 21:06 Dose: 25 mg Lorazepam (Lorazepam 0.5 Mg Tablet) 0.5 mg PO DAILY PRN PRN Reason: panic Magnesium Hydroxide (Milk Of Magnesia 30 Ml Oral.Susp) 30 ml PO DAILY PRN PRN Reason: Constipation Trazodone HCl (Trazodone Hcl 50 Mg Tablet) 50 mg PO BEDTIME [facility] Last Admin: 08/18/22 21:56 Dose: 50 mg Trazodone HCl (Trazodone Hcl 25 Mg Halftab) 25 mg PO BEDTIME PRN PRN Reason: Insomnia Allergies Allergies Allergy/AdvReac Type Severity Reaction Status Date / Time No Known Allergies Allergy Verified 08/11/22 17:08 Assessment & Plan Assessment & Plan (1) Major depressive disorder, recurrent severe without psychotic features: Status: Acute Code(s): F33.2 - Major depressive disorder, recurrent severe without psychotic features Plan 3/: continue prozac 20 mg daily. increase trazodone to 75 mg QHS. T/C incr in prozac dosing, starting wellbutrin, or other. 08/13: collateral obtained from [facility] counseling re meds Hx. start wellbutrin 150 today, otherwise continue previous regimen. 08/14/2022 Continue plan of care monitor food intake encourage safety plan and future orientation 08/15/22 Continue plan of care encourage parental support planning with [facility] Continue Wellbutrin consider PHP 08/16: increase wellbutrin to 300. increase periactin to 4. planning for DC later this week. pt plans to take medical leave from school and return to stay with family in [place]. 08/17: second day of wellbutrin 300. reporting SI today and had panic attack in the afternoon. states she slept well, however. T/C decrease of wellbutrin back to 150 and increase in prozac, currently at 20 mg daily. 08/18: renewed SI continues in setting of severe anxiety re plan to return to [place]. 2 panic attacks yesterday. start ativan 1 mg daily PRN panic attack. decrease wellbutrin back to 150 in the event it is exacerbating things. increase prozac to 40 for anxiety/depression mgmt. 08/19: improved from yesterday, was in touch with family. more insight into relationship btwn recent anxiety/SI and her trauma Hx. somewhat improved anxiety today. continue current mgmt. Reason for contiued inpatient stay Substantial Risk for: harm to self, inability to function and rapid decompensation Time Spent With Patient Time: Total time managing care of this patient today __25__ minutes.
[2022-08-19 23:00] VITALS: BP 98/66; PULSE 74; RESP 18; TEMP 36.8; O2SAT 95
[2022-08-19] MEDS: traZODone HCL 50 MG TABLET PO (23:08)
[2022-08-19] MEDS: Cyproheptadine HCl 4 MG TABLET PO (23:08)
[2022-08-20 08:18] VITALS: BP 101/63; PULSE 71; RESP 16; TEMP 36.9; O2SAT 98
[2022-08-20] MEDS: FLUoxetine HCl 20 MG CAPSULE 40 MG PO (08:53)
[2022-08-20] MEDS: buPROPion HCl XL 150 MG TAB.ER.24H PO (08:53)
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
[2022-08-20] MEDS: LORazepam 0.5 MG TABLET PO (13:40)
[2022-08-20 18:00] VITALS: BP 91/57; PULSE 98; RESP 16; TEMP 36.8; O2SAT 97
[2022-08-20] MEDS: Cyproheptadine HCl 4 MG TABLET PO (23:01)
[2022-08-20] MEDS: traZODone HCL 50 MG TABLET PO (23:01)
[2022-08-21 08:26] VITALS: BP 90/58; PULSE 70; TEMP 36.4; O2SAT 98
[2022-08-21] MEDS: FLUoxetine HCl 20 MG CAPSULE 40 MG PO (08:31)
[2022-08-21] MEDS: buPROPion HCl XL 150 MG TAB.ER.24H PO (08:32)
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
[2022-08-21] MEDS: LORazepam 0.5 MG TABLET PO (19:24)
[2022-08-21 19:55] VITALS: BP 117/84; PULSE 100; RESP 18; TEMP 36.7; O2SAT 97
[2022-08-21] MEDS: Cyproheptadine HCl 4 MG TABLET PO (22:59)
[2022-08-21] MEDS: traZODone HCL 50 MG TABLET PO (22:59)
[2022-08-22] MEDS: FLUoxetine HCl 20 MG CAPSULE 40 MG PO (09:29)
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
[2022-08-22] MEDS: buPROPion HCl XL 150 MG TAB.ER.24H PO (09:30)
[2022-08-22 09:33] VITALS: BP 85/53; PULSE 90; TEMP 36.5; O2SAT 97
[2022-08-22 20:18] VITALS: BP 87/64; PULSE 88; RESP 16; TEMP 36.6; O2SAT 96
[2022-08-22 21:30] VITALS: BP 110/74
[2022-08-22] MEDS: traZODone HCL 50 MG TABLET PO (22:33)
[2022-08-22] MEDS: Cyproheptadine HCl 4 MG TABLET PO (22:33)
[2022-08-23 08:30] VITALS: BP 102/49; PULSE 73; RESP 18; TEMP 36.6; O2SAT 98
[2022-08-23] MEDS: FLUoxetine HCl 20 MG CAPSULE 40 MG PO (09:12)
[2022-08-23] MEDS: buPROPion HCl XL 150 MG TAB.ER.24H PO (09:12)
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
--- NOTE | 2022-08-23 10:41 | PC.NURSE ---
Patient alert, oriented x3. Affect guarded, responses brief, one word. Denies SI/HI, denies AH/VH. Reviewed belongings/valuables with patient- patient reports everything is present and accounted for, no concerns verbalized. Patient had no further questions or concerns, verbalized understanding of discharge instructions.
== END 2022-08-23 10:25 | disposition home or self-care (01) | DRG 751 ==
LOC: HO.ED 17:42 → HO.PADLT16 22:23
PROVIDERS: Nurse Practitioner Family; Psychiatry & Neurology Psychiatry; Admitting Provider Psychiatry & Neurology Psychiatry; Emergency Provider Emergency Medicine; Visit Provider Psychiatry & Neurology Psychiatry
DX: F33.2 Major depressive disorder, recurrent severe without psychotic features (principal); R45.851 Suicidal ideations; Z20.822 Contact with and (suspected) exposure to COVID-19; Z23 Encounter for immunization; Z79.899 Other long term (current) drug therapy
CPT/HCPCS: 36415; 80053; 80307; 81001; 81025; 82077; 84443; 85025; 87086; 87635; 90686; 99285; S9485